=== PATIENT | female | born 1965 ===

== ENCOUNTER → 2019-10-09 | Outpatient (CLI) | payer BC ==
--- NOTE | 2019-10-09 12:43 | WOMENS IMAGING REPORT ---
EXAM DESCRIPTION: U/S ABDOMEN TOTAL IMAGES COMPLETED DATE/TIME: 10/09/2019 8:28 am REASON FOR STUDY: R10.9 UNSPECIFIED ABDOMINAL PAIN R10.9 UNSPECIFIED ABDOMINAL PAIN COMPARISON: None. TECHNIQUE: Dynamic and static grayscale images acquired of the abdomen and recorded on PACS. Additio nal selected color Doppler and spectral images recorded. Note: Study does not meet criteria for complete doppler/duplex scan LIMITATIONS: None. FINDINGS: PANCREAS: No masses. Visualized pancreatic duct normal caliber. LIVER: No masses. Echotexture normal. LIVER VASCULATURE: Normal directional flow of the main portal vein and hepatic veins. GALLBLADDER: No stones. Normal wall thickness. No pericholecystic fluid. ULTRASOUND-DETECTED SWIFT'S SIGN: Negative. INTRAHEPATIC DUCTS AND COMMON DUCT: CBD and intrahepatic ducts normal caliber. No filling defects. INFERIOR VENA CAVA: Normal flow. AORTA: Atherosclerosis. No aneurysm. RIGHT KIDNEY: Size, 11.4 cm. Normal echogenicity. No solid or suspicious masses. No hydronephr osis. No calcifications. LEFT KIDNEY: Normal size, 11.8 cm. Normal echogenicity. Small cyst. No solid or suspicious sandee s. No hydronephrosis. No calcifications. SPLEEN: Normal size, 10.2 cm. PERITONEAL AND PLEURAL SPACES: No ascites or effusions. OTHER: No other significant finding. IMPRESSION: NORMAL ABDOMINAL ULTRASOUND. TECHNICAL DOCUMENTATION: JOB ID: [id number] 2010 [employer]- All Rights Reserved Reading location - IP/workstation name: [email or web address]
== END ==
LOC: WI 07:43
PROVIDERS: ATTEND Internal Medicine Gastroenterology
DX: R10.9 Unspecified abdominal pain (principal)
CPT/HCPCS: 76700